=== PATIENT | female | born 1975 | race Two or more races ===

== ENCOUNTER 2025-06-07 09:05 | Day surgery (SDC) | payer MEDICAID ==
[2025-06-05 09:33] LABS: Hematocrit 40.8 % (36.0-46.0); Hemoglobin 14.5 g/dL (12.2-16.2); Mean Corpuscular Hemoglobin 31.1 pg (28.0-32.0); Mean Corpuscular Volume 87.5 fL (80.0-100.0); Nucleated Red Blood Cells % 0.2 %
[2025-06-05 09:44] LABS: INR 1.03 (0.9-1.15); Partial Thromboplastin Time 29.7 SEC (24.5-34.5); Prothrombin Time 10.9 sec (9.3-11.8)
[2025-06-05 10:30] LABS: Alanine Aminotransferase 12 U/L (7-40); Albumin 4.8 g/dL (3.2-4.8); Alkaline Phosphatase 74 U/L (46-116); Anion Gap 10 (5-15); BUN/Creatinine Ratio 11.4 (10.0-20.0); Calcium 9.5 mg/dL (8.7-10.4); Carbon Dioxide 28 mmol/L (20-31); Chloride 102 mmol/L (98-107); Potassium 4.6 mmol/L (3.5-5.1); Sodium 140 mmol/L (136-145); Total Protein 7.6 g/dL (5.7-8.2)
[2025-06-05 10:31] LABS: Bilirubin, Total 0.9 mg/dL (0.2-1.0)
[2025-06-05 10:34] LABS: Blood Urea Nitrogen 9 mg/dL (9-23); Glucose 108 mg/dL (74-106)
[2025-06-05 10:51] LABS: Urine Protein, UAD 1+ (Negative)
[~2025-06-07] VITALS: Ht 170.2 cm; Wt 90.7 kg
[~2025-06-07 09:05] MED LIST: ATOR10TA52 PO; CYCL-838 PO; FER325T PO; FLUT250M2 INH; HYDR-4491 PO; IBU600T PO; LEFL20TA PO; NORETAB32 PO
--- NOTE | 2025-06-07 12:01 | DVHHP2 ---
GI H&P Pre-Op Assessment Date: 06/07/25 Chief complaint: Anemia, blood in stool, epigastric pain HPI: per clinic note Past medical history: per clinic note Past surgical history: per clinic note Family history: per clinic note Physical exam: General: NAD, AAOX3 HEENT: PERRL, no scleral icterus, normal hearing, gums without lesions or bleeding, oropharynx clear without erythema or exudate. Neck: Supple without enlargement of the thyroid, or lymphadenopathy. Chest: Normal size and shape, no tenderness, lung belle clear to auscultation and percussion, nonlabored breathing. Heart: RRR, no murmur Abdomen: non-distended, no tenderness to palpation, +BS, no hepatosplenomegaly Extremities: no edema Neurological: CN II-XII intact, sensation intact in all extremities, 5+ strength in all extremities Skin: No rashes, No jaundice Assessment: - Anemia, blood in stool, epigastric pain Plan: - EGD - Colonoscopy - Risks (bleeding, infection, perforation, reaction to sedation medications and cardiopulmonary arrest) and benefit of the procedure were explained to patient. Patient agrees to undergo the procedure. MELINDA JONES MD Jun 07, 2025 12:01
[2025-06-07] MEDS ORDERED: fentaNYL CITRATE 100 MCG/2 ML VL ONE (12:15)
[2025-06-07 12:32] VITALS: PULSE 94; RESP 13; O2SAT 96
[2025-06-07] MEDS ORDERED: PROPOFOL 10 MG/ML 20 ML IV ONE (12:32)
--- NOTE | 2025-06-07 12:32 | DVHOP2 ---
Operative Report DATE OF OPERATION: 06/07/25 PROCEDURE: Upper Endoscopy. PREOPERATIVE INDICATION: The patient is a 49 -year-old female undergoing endoscopy for epigastric pain and anemia. POSTOPERATIVE DIAGNOSES: 1. Slight duodenitis in the duodenal bulb. 2. Mild gastritis. PROCEDURE PERFORMED BY: Franco Watkins SCOPE: Olympus videoendoscope. ASA CLASS: 3 PREOPERATIVE MEDICATIONS: MAC with Dr Herrera PROCEDURE IN DETAIL: After obtaining an informed consent, the patient was placed on left lateral decubitus position. The patient was then sedated with the above medications. A bite block was placed between her teeth. The endoscope was then passed through the oropharynx, into the esophagus, and through the stomach and pylorus up to the second and third part of the duodenum. There was slight duodenitis in the duodenal bulb. There was mild gastritis. Gastric biopsies were obtained using cold forceps. The GE junction was normal in appearance at 36 cm. The esophagus was normal in appearance. The endoscope was then withdrawn. The patient tolerated the procedure well without difficulty. COMPLICATIONS : None SPECIMENS: Gastric biopsies DISPOSITION: D/C to home PLAN: 1. Await for biopsy result 2. Will place pt on Protonix 40 mg daily FRANCO WATKINS MD Jun 07, 2025 12:32
--- NOTE | 2025-06-07 12:33 | DVHOP2 ---
Operative Report DATE OF OPERATION: 06/07/25 PROCEDURE: Colonoscopy. PREOPERATIVE INDICATION: The patient is a 49 -year-old female undergoing colonoscopy for anemia and blood in stool. POSTOPERATIVE DIAGNOSES: 1. 2 mm descending colon polyp was removed with biopsy forceps. PROCEDURE PERFORMED BY: Franco Watkins M.D. SCOPE: Olympus videocolonoscope. ASA CLASS: 3 PREOPERATIVE MEDICATIONS: MAC with Dr Herrera PROCEDURE IN DETAIL: After obtaining an informed consent, the patient was placed on left lateral decubitus position. She was then sedated with the above medications. A rectal examination was performed that was normal. The colonoscope was then passed through the anus into the rectosigmoid and through the descending, transverse, and ascending colon up to the cecum with visualization of the appendiceal orifice, base of the cecum and the ileocecal valve. A 2 mm descending colon polyp was removed with cold biopsy forceps. The colonoscope was then withdrawn. The patient tolerated the procedure well without difficulty. WITHDRAWAL TIME: 6 minutes QUALITY OF THE PREP: Soldier Bowel Prep score: 6 COMPLICATIONS : None SPECIMENS: Colon polyp DISPOSITION: D/C to home PLAN: 1. Repeat colonoscopy base on biopsy result FRANCO WATKINS MD Jun 07, 2025 12:33
--- NOTE | 2025-06-07 12:34 | DVHDS2 ---
Physician Discharge Progress N Final Diagnosis: Duodenitis, gastritis Colon polyp Operations or Procedures: Operations or Procedures EGD with cold biopsy Colonoscopy with cold biopsy polypectomy Condition on Discharge: Good Disposition: Home Discharge Instructions: Diet: Regular Activity: No Restrictions, As Tolerated Medications: Resume previous home medications Follow Up Care: Discharge Statement: "Patient was advised to return to the ER or call 911 if any headaches, dizziness, shortness of breath, chest pain, abdominal pain, bleeding, fevers, or worsening of medical condition. Patient was counseled about treatment plan, medications, possible side effects, patientverbalized understanding. All questions were answered to the best of my ability. This discharge took greater then 30 minutes in planning, reviewing documentation, counseling the patient, and discussing with other team members." MELINDA JONES MD Jun 07, 2025 12:34
[2025-06-07 13:17] VITALS: BP 148/96; PULSE 94; RESP 15; O2SAT 95
== END 2025-06-07 12:42 | disposition home or self-care (01) ==
LOC: GI 09:05
PROVIDERS: ATTEND Internal Medicine Gastroenterology
DX: D64.9 Anemia, unspecified (principal); K92.1 Melena; K29.50 Unspecified chronic gastritis without bleeding; D12.4 Benign neoplasm of descending colon; K29.80 Duodenitis without bleeding; I10 Essential (primary) hypertension; E78.00 Pure hypercholesterolemia, unspecified; M06.9 Rheumatoid arthritis, unspecified; E66.01 Morbid (severe) obesity due to excess calories; Z98.891 History of uterine scar from previous surgery; Z91.040 Latex allergy status; Z91.013 Allergy to seafood; Z68.31 Body mass index [BMI] 31.0-31.9, adult
CPT/HCPCS: 36415; 43239; 45380; 80053; 81001; 81025; 85025; 85610; 85730; 88305; 88342; J2704; J3010